=== PATIENT | female | born 1985 | race American Indian/Alaskan Native ===

== ENCOUNTER 2022-06-14 07:58 | Outpatient (CLI) | payer OTHER ==
--- NOTE | 2022-06-14 09:36 | Mammography Report ---
DIGITAL SCREENING MAMMOGRAM WITH CAD, 06/14/2022 CLINICAL INFORMATION / INDICATION: Routine screening mammography. SCREENING MAMMOGRAM Z12.31. Patient reports intermittent diffuse left breast pain, left milky nipple discharge, and an area of itching a long the left breast. TECHNIQUE: Digital bilateral 2D mammography was obtained in the craniocaudal and mediolateral obliqu e projections. This examination was interpreted with the benefit of Computer-Aided Detection analysis . COMPARISON: None available FINDINGS: Breast Density: The breasts are heterogeneously dense, which may obscure small masses. No dominant mass, suspicious calcifications, or architectural distortion in either breast. IMPRESSION: 1. No suspicious mammographic abnormality identified in either breast. 2. There is no mammographic abnormality to account for diffuse left breast pain, milky nipple dischar ge, and an area of focal itching, therefore clinical correlation is recommended. If there is ongoing clinical concern, a left breast ultrasound could be performed for further evaluation. Follow up recommendation: Clinical exam BI-RADS Category 1: NEGATIVE A "normal" or negative report should not discourage follow up or biopsy of a clinically significant f inding. A written summary of these findings will be mailed to the patient. The patient will be entered into a mammography reporting system which will generate a reminder letter for the patient's next appointmen t at the appropriate interval. The [employer] recommends yearly mammograms starting at age 40 and continuing as l niya as a woman is in good health. Breast MRI is recommended for women with an approximate 20-25% or greater lifetime risk of breast cancer, including women with a strong family history of breast or ova estuardo cancer or who have been treated for Hodgkin's disease. Signer Name: Adeola Veliz MD Signed: 06/14/2022 9:31 AM Workstation Name: [email or web address]
== END 2022-06-14 07:59 | disposition home or self-care (01) ==
LOC: MAMMO 07:58
PROVIDERS: ATTEND Obstetrics & Gynecology
DX: Z12.31 Encounter for screening mammogram for malignant neoplasm of breast (principal); N64.89 Other specified disorders of breast
CPT/HCPCS: 77067